=== PATIENT | female | born 1980 | race American Indian/Alaskan Native ===

== ENCOUNTER 2019-07-31 12:32 | Emergency (ER) | payer MEDICAID ==
[2019-07-31 12:45] VITALS: BP 140/90
--- NOTE | 2019-07-31 12:47 | Event Note ---
ED Screening Note ED Screening Note: getting out of the lyft this morning and she states it was pulling off states she hit the right orbit and right eye on the car door states feels blurry in the right eye This initial assessment/diagnostic orders/clinical plan/treatment(s) is/are subject to change based on patients health status, clinical progression and re- assessment by fellow clinical providers in the ED. Further treatment and workup at subsequent clinical providers discretion. Patient/guardian urged not to elope from the ED as their condition may be serious if not clinically assessed and managed. Initial orders include: CT facial bones
--- NOTE | 2019-07-31 13:25 | Emergency Department Report ---
Chief Complaint: Eye Problems Stated Complaint: RT EYE PAIN Time Seen by Provider: 07/31/19 12:43 - HPI History of Present Illness: Lashae is 39 yo female with hx of DM and has right facial pain after striking the side of her face with a car door. No LOC. On exam there is not laceration, no swelling or tenderness. Extraocular movements intact. She has not taken her diabetes medications about a year. She denies any malaise, vomiting or abdominal pain - Exam Vital Signs: Vital Signs 07/31/19 12:44 Temperature 97.9 F Pulse Rate 111 H Respiratory 16 Rate Blood Pressure 140/90 O2 Sat by Pulse 99 Oximetry MSE screening note: Focused history and physical exam performed. Due to findings the following was ordered: ED Disposition for MSE Clinical Impression: Facial contusion, Diabetes mellitus Disposition: MED SCREENING EXAM-LEFT Is pt being admited?: No Does the pt Need Aspirin: No Condition: Stable Referrals: GISELLE CHATMAN MD [Staff Physician] - 3-5 Days Forms: Work/School Release Form(ED)
== END 2019-07-31 13:38 | disposition left against medical advice (07) ==
LOC: ED 12:32
DX: S00.83XA Contusion of other part of head, initial encounter (principal); E11.9 Type 2 diabetes mellitus without complications; X58.XXXA Exposure to other specified factors, initial encounter; Y93.9 Activity, unspecified; Y92.89 Other specified places as the place of occurrence of the external cause; Y99.8 Other external cause status
CPT/HCPCS: 99283